=== PATIENT | female | born 1980 | race Two or more races ===

== ENCOUNTER 2017-12-28 15:27 | Emergency (ER) | payer SELFPAY ==
[2017-12-28 16:37] LABS: BILIRUBIN,URINE NEGATIVE (NEG); CLARITY,URINE CLEAR; COLOR,URINE YELLOW; GLUCOSE,URINE NEGATIVE (NEG); NITRITE,URINE NEGATIVE (NEG); PH,URINE 5.5; PROTEIN,URINE NEGATIVE (NEG-TRACE); UROBILINOGEN,URINE 0.2 mg/dL (0.2 mg/dL)
[2017-12-28 16:50] LABS: BACTERIA,URINE FEW /HPF (0-FEW); RBC,URINE 0 /HPF (0-2); SQUAMOUS EPITHELIAL CELL,UR FEW /LPF; WBC,URINE OCC /HPF (0-4)
[2017-12-28] MEDS: ACETAMINOPHEN 500 MG TABLET PO (17:02)
== END 2017-12-28 17:38 | disposition home or self-care (01) ==
LOC: ER 15:27
DX: N39.0 Urinary tract infection, site not specified (principal); M54.5 Low back pain; E11.9 Type 2 diabetes mellitus without complications; I10 Essential (primary) hypertension; Z90.710 Acquired absence of both cervix and uterus
CPT/HCPCS: 81001; 99283

== ENCOUNTER 2018-02-25 10:16 | Emergency (ER) | payer SELFPAY ==
[~2018-02-25] VITALS: Ht 165.1 cm; Wt 95.3 kg
[~2018-02-25 10:16] MED LIST: CEPH500C PO
[2018-02-25 10:18] VITALS: BP 139/87
[2018-02-25] MEDS ORDERED: ORPHENADRINE CITRATE 60 MG/2 ML VIAL. IM ONE (11:00)
[2018-02-25] MEDS ORDERED: KETOROLAC 60 MG/2 ML INJ. IM ONE (11:00)
[2018-02-25] MEDS ORDERED: ORPH100T PO (11:32)
[2018-02-25] MEDS ORDERED: NAPR500T8 PO (11:32)
--- NOTE | 2018-02-25 11:33 | PHYS DOC ---
Past Medical History Past Medical History: Diabetes-Type II, Hypertension, UTI Past Surgical History: Hysterectomy Additional Past Surgical Histo: ectopic, RT ANKLE Alcohol Use: None Drug Use: None Adult General Chief Complaint Chief Complaint: LOWER BACK PAIN OR INJURY HPI HPI Patient is a 38 year old female who presents to the emergency room with complaints of low back pain that radiates into her right leg since awakening this morning. She denies any loss of bowel or bladder control, saddle anesthesia , or any known injury. Currently she rates her pain as a 10 out of 10 on pain scale. States she took 800 mg of ibuprofen prior to arrival with no relief of pain. Patient states that the pain increases when she tries to walk. She denies any dysuria, increased urinary frequency, hematuria, or comments. She denies any numbness, or tingling in her right lower extremity. She describes the pain as sharp and shooting. Review of Systems Review of Systems Constitutional: Denies fever or chills [] GI: Denies abdominal pain, saddle anesthesia, nausea, vomiting, or diarrhea [] : Denies loss of bowel or bladder control, dysuria or hematuria [] Musculoskeletal: Reports right low back pain that radiates into right leg Integument: Denies rash or skin lesions [] Neurologic: Denies headache, focal weakness or sensory changes [] All other systems were reviewed and found to be within normal limits, except as documented in this note. Current Medications Current Medications Current Medications Medications (Trade) Dose Ordered Sig/[facility] Start Time Stop Time Status Last Admin Dose Admin Ketorolac Tromethamine (Toradol Im) 30 mg 1X ONCE 02/25/18 11:00 02/25/18 11:01 DC 02/25/18 11:07 30 MG Orphenadrine Citrate (Norflex) 60 mg 1X ONCE 02/25/18 11:00 02/25/18 11:01 DC 02/25/18 11:06 60 MG Allergies Allergies Allergies Coded Allergies Type Severity Reaction Last Updated Verified No Known Drug Allergies 12/28/17 No Physical Exam Physical Exam Constitutional: Well developed, well nourished, no acute distress, non-toxic appearance. [] HENT: Normocephalic, atraumatic, bilateral external ears normal, nose normal. [] Eyes: Normal Lungs & Thorax: Respirations even and unlabored Skin: Warm, dry, no erythema, no rash. [] Back: No bony tenderness, no CVA tenderness; reports pain with palpation of right lateral low back. Right straight leg lift negative.. [] Extremities: No tenderness, no cyanosis, no clubbing, ROM intact, no edema. [] Neurologic: Alert and oriented X 3, normal motor function, normal sensory function, no focal deficits noted. [] Psychologic: Affect normal, judgement normal, mood normal. [] Current Patient Data Vital Signs Vital Signs Date Time Temp Pulse Resp B/P (MAP) Pulse Ox O2 Delivery O2 Flow Rate FiO2 02/25/18 10:18 98.3 73 16 139/87 (104) 96 Room Air 98.3 EKG EKG [] Radiology/Procedures Radiology/Procedures [] Course & Med Decision Making Course & Med Decision Making Pertinent Labs and Imaging studies reviewed. (See chart for details) Right low back pain with sciatica. Patient was given 30 mg of Toradol IM and orphenadrine 60 mg IM in the department. Recommend application of ice or heat for comfort. Prescriptions written for naproxen and orphenadrine. Activity as tolerated. Follow-up with primary care doctor next week.Patient verbalized an understanding of home care, medications, follow-up, and return to ED instructions and was in agreement with the plan of care. [] Dragon Disclaimer Dragon Disclaimer This electronic medical record was generated, in whole or in part, using a voice recognition dictation system. Departure Departure Impression: Primary Impression: Right-sided low back pain with sciatica Disposition: 01 HOME, SELF-CARE Condition: STABLE Referrals: NO PCP (PCP) Patient Instructions: Back Pain, Adult, [id number], Sciatica, [id number] Additional Instructions: Fill the prescriptions and use them as directed. Recommend application of ice or heat to sore areas as needed for comfort. Activity as tolerated. Follow-up with your primary care doctor next week. Return to the ER if her symptoms get worse. Scripts Orphenadrine Citrate (ORPHENADRINE CITRATE) 100 Mg Tablet.er 1 TAB PO BID for 10 Days, #20 TAB 0 Refills Prov: MIRACLE FLORES NEUROSURGERY SPINE PHYSICIAN 02/25/18 Naproxen (NAPROXEN) 500 Mg Tablet.dr 1 TAB PO BID for 10 Days, #20 TAB 0 Refills Prov: MIRACLE FLORES NEUROSURGERY SPINE PHYSICIAN 02/25/18 Problem Qualifiers Primary Impression: Right-sided low back pain with sciatica Chronicity: acute Sciatica laterality: sciatica of right side Qualified Codes: M54.41 - Lumbago with sciatica, right side MIRACLE FLORES APRN Feb 25, 2018 11:33
== END 2018-02-25 11:45 | disposition home or self-care (01) ==
LOC: ER 10:16
DX: M54.41 Lumbago with sciatica, right side (principal); E11.9 Type 2 diabetes mellitus without complications; I10 Essential (primary) hypertension; Z90.710 Acquired absence of both cervix and uterus; Z87.440 Personal history of urinary (tract) infections
CPT/HCPCS: 96372; 99284; J1885; J2360

== ENCOUNTER 2018-05-02 15:59 | Emergency (ER) | payer SELFPAY ==
[~2018-05-02] VITALS: Ht 162.6 cm; Wt 90.7 kg
[~2018-05-02 15:59] MED LIST changes: +NAPR500T8 PO; +ORPH100T PO
[2018-05-02 16:05] VITALS: BP 151/74
[2018-05-02 16:22] LABS: BILIRUBIN,URINE NEGATIVE (NEG); CLARITY,URINE CLEAR; COLOR,URINE YELLOW; NITRITE,URINE NEGATIVE (NEG); PH,URINE 5.5; PROTEIN,URINE NEGATIVE (NEG-TRACE); UROBILINOGEN,URINE 0.2 mg/dL (0.2 mg/dL)
[2018-05-02 16:33] LABS: BACTERIA,URINE MODERATE /HPF (0-FEW); RBC,URINE 0 /HPF (0-2); SQUAMOUS EPITHELIAL CELL,UR MANY /LPF; WBC,URINE OCC /HPF (0-4)
--- NOTE | 2018-05-02 16:36 | PHYS DOC ---
Past Medical History Past Medical History: Diabetes-Type II, Hypertension, UTI Past Surgical History: Hysterectomy Additional Past Surgical Histo: ectopic, RT ANKLE Alcohol Use: None Drug Use: None Adult General Chief Complaint Chief Complaint: PAIN ON URINATION [facility] HPI Patient is a 38 year old female with a history of hypertension, diabetes type 2 , frequent UTIs, who presents today complaining of dysuria for 1 week. Patient is also complaining of exacerbation of chronic sciatica pain. She states she's had bilateral low back pain rated as mild radiating to bilateral lower extremities for one week. Denies any injury. Denies any loss of bowel bladder function. Review of Systems Review of Systems Constitutional: Denies fever or chills [] Eyes: Denies change in visual acuity, redness, or eye pain [] HENT: Denies nasal congestion or sore throat [] Respiratory: Denies cough or shortness of breath [] Cardiovascular: No additional information not addressed in HPI [] GI: Denies abdominal pain, nausea, vomiting, bloody stools or diarrhea [] : Reports dysuria, denies hematuria [] Musculoskeletal: Reports exacerbation of chronic low back pain. Integument: Denies rash or skin lesions [] Neurologic: Denies headache, focal weakness or sensory changes [] All other systems were reviewed and found to be within normal limits, except as documented in this note. Allergies Allergies Allergies Coded Allergies Type Severity Reaction Last Updated Verified No Known Drug Allergies 12/28/17 No Physical Exam Physical Exam Constitutional: Well developed, well nourished, no acute distress, non-toxic appearance. [] HENT: Normocephalic, atraumatic, bilateral external ears normal, oropharynx moist, no oral exudates, nose normal. [] Eyes: PERRLA, EOMI, conjunctiva normal, no discharge. [] Neck: Normal range of motion, no tenderness, supple, no stridor. [] Cardiovascular:Heart rate regular rhythm, no murmur [] Lungs & Thorax: Bilateral breath sounds clear to auscultation [] Abdomen: Bowel sounds normal, soft, no tenderness, no masses, no pulsatile masses. [] Skin: Warm, dry, no erythema, no rash. [] Back: Tenderness on palpation of bilateral SI joints, no midline lumbar spine tenderness, no CVA tenderness. Positive bilateral straight leg raises. Extremities: No tenderness, no cyanosis, no clubbing, ROM intact, no edema. [] Neurologic: Alert and oriented X 3, normal motor function, normal sensory function, no focal deficits noted. [] Psychologic: Affect normal, judgement normal, mood normal. [] Current Patient Data Vital Signs Vital Signs Date Time Temp Pulse Resp B/P (MAP) Pulse Ox O2 Delivery O2 Flow Rate FiO2 05/02/18 16:05 98.1 81 20 151/74 (99) 99 Room Air 98.1 Lab Values Laboratory Tests Test 05/02/18 16:09 Urine Collection Type Void Urine Color Yellow Urine Clarity Clear Urine pH 5.5 Urine Specific [place] >=1.030 Urine Protein Negative mg/dL (NEG-TRACE) Urine Glucose (UA) Negative mg/dL (NEG) Urine Ketones (Stick) Negative mg/dL (NEG) Urine Blood Negative (NEG) Urine Nitrite Negative (NEG) Urine Bilirubin Negative (NEG) Urine Urobilinogen Dipstick 0.2 mg/dL (0.2 mg/dL) Urine Leukocyte Esterase Negative (NEG) Urine RBC 0 /HPF (0-2) Urine WBC Occ /HPF (0-4) Urine Squamous Epithelial Cells Many /LPF Urine Bacteria Moderate /HPF (0-FEW) Urine Mucus Marked /LPF EKG EKG [] Radiology/Procedures Radiology/Procedures [] Course & Med Decision Making Course & Med Decision Making Pertinent Labs and Imaging studies reviewed. (See chart for details) This is a 38-year-old female patient presenting to the ED today with complaints of dysuria for one week. Also complaining of exacerbation of chronic sciatic pain. U/A noted for many bacteria and squamous cell epithelium, this appears to be a contaminated specimen unfortunately patient is symptomatic. We'll put her on Bactrim while waiting for urine culture, we'll discharge her with Pyridium as well. Discharged with diclofenac and cyclobenzaprine for her sciatic pain. Follow-up with her PCP in 1-2 weeks. Dragon Disclaimer Dragon Disclaimer This electronic medical record was generated, in whole or in part, using a voice recognition dictation system. Departure Departure Impression: Primary Impression: UTI (urinary tract infection) Additional Impression: Chronic low back pain with bilateral sciatica Disposition: 01 HOME, SELF-CARE Condition: STABLE Referrals: NO PCP (PCP) follow up with your doctor next week FOFANA,SELINA N MD follow up for sciatica pain next week Patient Instructions: Sciatica, [id number], Urinary Tract Infection Additional Instructions: You were evaluated in the emergency room for urinary tract infection and sciatic pain. Complete your antibiotics. Take the rest of the prescribed medications as ordered. Follow-up with your doctor as well as the pain clinic doctor provided for chronic sciatic pain. Scripts Phenazopyridine Hcl (PYRIDIUM) 100 Mg Tablet 100 MG PO TID, #9 TAB Prov: LORIE TRUONG APRN 05/02/18 Diclofenac Sodium (DICLOFENAC SODIUM) 50 Mg Tablet.dr 1 TAB PO BID, #30 TAB 0 Refills Prov: LORIE TRUONG APRN 05/02/18 Sulfamethoxazole/Trimethoprim (BACTRIM DS TABLET) 1 Each Tablet 1 TAB PO BID, #6 TAB Prov: LORIE TRUONG APRN 05/02/18 Cyclobenzaprine Hcl (CYCLOBENZAPRINE HCL) 10 Mg Tablet 1 TAB PO TID, #30 TAB Prov: LORIE TRUONG APRN 05/02/18 Problem Qualifiers Primary Impression: UTI (urinary tract infection) Urinary tract infection type: site unspecified Hematuria presence: without hematuria Qualified Codes: N39.0 - Urinary tract infection, site not specified Additional Impression: Chronic low back pain with bilateral sciatica Back pain laterality: bilateral Qualified Codes: M54.42 - Lumbago with sciatica, left side; M54.41 - Lumbago with sciatica, right side; G89.29 - Other chronic pain LORIE TRUONG APRN May 02, 2018 16:36
[2018-05-02] MEDS ORDERED: CYCL10TA2 PO (16:48)
[2018-05-02] MEDS ORDERED: DICL50TA4 PO (16:48)
[2018-05-02] MEDS ORDERED: SULF1TAB24 PO (16:48)
[2018-05-02] MEDS ORDERED: PHEN100T82 PO (16:50)
[2018-05-02] MEDS ORDERED: HYDROcodone/APAP 5/325MG 1 TAB TABLET PO ONE (17:00)
[2018-05-02] MEDS ORDERED: CYCLOBENZAPRINE 10 MG TABLET. PO ONE (17:00)
== END 2018-05-02 16:57 | disposition home or self-care (01) ==
LOC: ER 15:59
DX: N39.0 Urinary tract infection, site not specified (principal); M54.42 Lumbago with sciatica, left side; M54.41 Lumbago with sciatica, right side; G89.29 Other chronic pain; I10 Essential (primary) hypertension; E11.9 Type 2 diabetes mellitus without complications; Z90.710 Acquired absence of both cervix and uterus
CPT/HCPCS: 81001; 99283

== ENCOUNTER 2018-08-08 21:35 | Emergency (ER) | payer BC ==
[~2018-08-08] VITALS: Ht 162.6 cm; Wt 97.5 kg
[~2018-08-08 21:35] MED LIST changes: +CYCL10TA2 PO; +DICL50TA4 PO; +PHEN100T82 PO; +SULF1TAB24 PO
[2018-08-08 21:51] LABS: BILIRUBIN,URINE NEGATIVE (NEG); CLARITY,URINE CLEAR; COLOR,URINE YELLOW; NITRITE,URINE NEGATIVE (NEG); PH,URINE 6.5; PROTEIN,URINE NEGATIVE (NEG-TRACE)
[2018-08-08 21:58] LABS: BACTERIA,URINE MANY /HPF (0-FEW); RBC,URINE OCC /HPF (0-2); SQUAMOUS EPITHELIAL CELL,UR MOD /LPF; WBC,URINE >40 /HPF (0-4)
[2018-08-08] MEDS ORDERED: cefTRIAXone IV Push 1 GM VIAL. IVP ONE (22:45)
[2018-08-08] MEDS ORDERED: CEPH500C PO (22:51)
--- NOTE | 2018-08-08 23:09 | PHYS DOC ---
Past Medical History Past Medical History: Diabetes-Type II, Hypertension, UTI Past Surgical History: Cholecystectomy, Hysterectomy Additional Past Surgical Histo: ectopic, RT ANKLE Alcohol Use: None Drug Use: None Adult General Chief Complaint Chief Complaint: FLANK PAIN HPI HPI Patient is a 38 year old f with cc of dysuria and left flan onset 2 days ago history of prior UTIs no fever did have one episode of vomiting but is taking by mouth's no abdominal pain. Symptoms are mild to moderate k painnonradiating in nature Review of Systems Review of Systems Constitutional: Denies fever or chills [] Eyes: Denies change in visual acuity, redness, or eye pain [] HENT: Denies nasal congestion or sore throat [] Respiratory: Denies cough or shortness of breath [] Musculoskeletal: Integument: Denies rash or skin lesions [] Neurologic: Denies headache, focal weakness or sensory changes [] Endocrine: Denies polyuria or polydipsia [] All other systems were reviewed and found to be within normal limits, except as documented in this note. Current Medications Current Medications Current Medications Medications (Trade) Dose Ordered Sig/[facility] Start Time Stop Time Status Last Admin Dose Admin Ceftriaxone Sodium (Rocephin) 1 gm 1X ONCE 08/08/18 22:45 08/08/18 22:46 DC Allergies Allergies Allergies Coded Allergies Type Severity Reaction Last Updated Verified No Known Drug Allergies 12/28/17 No Physical Exam Physical Exam Constitutional: Well developed, well nourished, no acute distress, non-toxic appearance. [] HENT: Normocephalic, atraumatic, bilateral external ears normal, oropharynx moist, no oral exudates, nose normal. [] Eyes: PERRLA, EOMI, conjunctiva normal, no discharge. [] Neck: Normal range of motion, no tenderness, supple, no stridor. [] Cardiovascular:Heart rate regular rhythm, no murmur [] Lungs & Thorax: Bilateral breath sounds clear to auscultation [] Abdomen: Bowel sounds normal, soft, no tenderness, no masses, no pulsatile masses. [] Skin: Warm, dry, no erythema, no rash. [] Back: cva ttp on the left noted Extremities: No tenderness, no cyanosis, no clubbing, ROM intact, no edema. [] Neurologic: Alert and oriented X 3, normal motor function, normal sensory function, no focal deficits noted. [] Psychologic: Affect normal, judgement normal, mood normal. [] Current Patient Data Vital Signs Vital Signs Date Time Temp Pulse Resp B/P (MAP) Pulse Ox O2 Delivery O2 Flow Rate FiO2 08/08/18 21:50 97.7 86 14 165/89 (114) 96 Room Air 97.7 Lab Values Laboratory Tests Test 08/08/18 21:42 08/08/18 21:45 08/08/18 22:40 Urine Collection Type Unknown Urine Color Yellow Urine Clarity Clear Urine pH 6.5 Urine Specific [place] 1.015 Urine Protein Negative mg/dL (NEG-TRACE) Urine Glucose (UA) Negative mg/dL (NEG) Urine Ketones (Stick) Negative mg/dL (NEG) Urine Blood Negative (NEG) Urine Nitrite Negative (NEG) Urine Bilirubin Negative (NEG) Urine Urobilinogen Dipstick 1.0 mg/dL (0.2 mg/dL) Urine Leukocyte Esterase Moderate (NEG) Urine RBC Occ /HPF (0-2) Urine WBC >40 /HPF (0-4) Urine Squamous Epithelial Cells Mod /LPF Urine Bacteria Many /HPF (0-FEW) Urine Mucus Mod /LPF POC Urine HCG, Qualitative Hcg negative (Negative) Glucose (Fingerstick) 171 mg/dL (70-99) H EKG EKG [] Radiology/Procedures Radiology/Procedures [] Course & Med Decision Making Course & Med Decision Making Pertinent Labs and Imaging studies reviewed. (See chart for details) [] UTI well-appearing perception for Keflex dose of cephalexin was given return precautions were discussed patient appears appropriate for outpatient management. Dragon Disclaimer Dragon Disclaimer This electronic medical record was generated, in whole or in part, using a voice recognition dictation system. Departure Departure Impression: Primary Impression: UTI (urinary tract infection) Disposition: HOME, SELF-CARE Condition: STABLE Patient Instructions: Urinary Tract Infection, Child Scripts Cephalexin (CEPHALEXIN) 500 Mg Capsule 1 CAP PO QID, #40 CAP Prov: AYO TRIVEDI MD 08/08/18 AYO TRIVEDI MD Aug 08, 2018 23:09
[2018-08-08 23:13] VITALS: BP 114/65
[2018-08-08] MEDS ORDERED: ONDANSETRON PF 4 MG/2 ML VIAL. IV ONE (23:15)
== END 2018-08-08 23:21 | disposition home or self-care (01) ==
LOC: ER 21:35
DX: N39.0 Urinary tract infection, site not specified (principal); R11.10 Vomiting, unspecified; M54.9 Dorsalgia, unspecified; E11.9 Type 2 diabetes mellitus without complications; I10 Essential (primary) hypertension; Z90.49 Acquired absence of other specified parts of digestive tract; Z90.710 Acquired absence of both cervix and uterus
CPT/HCPCS: 81001; 81025; 82962; 87086; 87186; 96374; 96375; 99283; J0696; J2405; 99284

== ENCOUNTER 2018-11-08 14:03 | Emergency (ER) | payer BC ==
[~2018-11-08] VITALS: Ht 162.6 cm; Wt 102.2 kg
[2018-11-08 14:46] VITALS: BP 162/95
[2018-11-08] MEDS ORDERED: IV NORMAL SALINE 1000ML BAG 1,000 ML IV ONE (15:00)
[2018-11-08 15:04] LABS: BASO # 0.1 x10^3/uL (0.0-0.2); BASO % 1 % (0-3); EOS # 0.2 x10^3/uL (0.0-0.7); EOS % 1 % (0-3); HEMATOCRIT 43.1 % (36.0-47.0); HEMOGLOBIN 14.2 g/dL (12.0-15.5); LYMPH % 37 % (24-48); MEAN CORPUSCULAR HEMOGLOBIN 28 pg (25-35); MEAN CORPUSCULAR HGB CONC 33 g/dL (31-37); MEAN CORPUSCULAR VOLUME 83 fL (79-100); MONO # 0.6 x10^3/uL (0.0-1.1); MONO % 6 % (0-9); NEUT % 56 % (31-73); PLATELET COUNT 436 x10^3/uL (140-400); RED BLOOD COUNT 5.17 x10^6/uL (3.50-5.40); WHITE BLOOD COUNT 10.9 x10^3/uL (4.0-11.0)
[2018-11-08 15:13] LABS: PROTHROMBIN TIME PATIENT 12.4 SEC (11.7-14.0)
[2018-11-08 15:19] LABS: CALCIUM 9.6 mg/dL (8.5-10.1); CREATININE 0.8 mg/dL (0.6-1.0); GFR 79.4; POTASSIUM 3.7 mmol/L (3.5-5.1)
--- NOTE | 2018-11-08 15:20 | RAD ---
CT HEAD WO CONTRAST Indication: Left face and right arm numbness since this morning. Exposure: One or more of the following individualized dose reduction techniques were utilized for this examination: 1. Automated exposure control 2. Adjustment of the mA and/or kV according to patient size 3. Use of iterative reconstruction technique. Technique: Standard imaging without intravenous contrast. No prior study for comparison. No evidence of acute intracranial hemorrhage, mass effect, midline shift or abnormal extra-axial fluid collection. Moreno-white matter distinction is preserved. Ventricles and sulci appear symmetric. The orbits appear symmetric. No notable scalp swelling. The partially visualized sinuses are clear no acute skull abnormality. IMPRESSION: No evidence of acute intracranial hemorrhage. If there is concern for acute ischemia, MR could further evaluate. Electronically signed by: Chaparro Morataya MD (11/08/2018 3:17 PM) [id number]
[2018-11-08 15:23] LABS: ALBUMIN 3.8 g/dL (3.4-5.0); ALBUMIN/GLOBULIN RATIO 0.9 (1.0-1.7); MAGNESIUM 2.1 mg/dL (1.8-2.4); TOTAL BILIRUBIN 0.3 mg/dL (0.2-1.0); TOTAL PROTEIN 7.9 g/dL (6.4-8.2)
[2018-11-08 15:41] LABS: CREATINE KINASE 84 U/L (26-192)
--- NOTE | 2018-11-08 15:42 | EKG ---
[facility] [address] [place] [address] Test Date: 2018-11-08 Test Time: 14:45:42 Pat Name: HASEEB LIN Department: Room: Gender: F Insurance Writer: : 1980 Requested By: LORIE TRUONG Order Number: [id number] Reading MD: Measurements Intervals [place] Rate: 78 P: 42 OR: 170 QRS: 58 QRSD: 82 T: 56 QT: 364 QTc: 418 Interpretive Statements SINUS RHYTHM QRS(T) CONTOUR ABNORMALITY CONSIDER ANTEROSEPTAL MYOCARDIAL DAMAGE CONSIDER INFERIOR MYOCARDIAL DAMAGE POSSIBLY ABNORMAL ECG RI6.01 No previous ECG available for comparison
--- NOTE | 2018-11-08 15:47 | RAD ---
Examination: Frontal view of the chest, 2 views of the cervical spine and 2 views of the right shoulder HISTORY: History of right-sided weakness COMPARISON: None available. FINDINGS: The cardiomediastinal silhouette grossly appears unremarkable. Minimal prominent appearing bilateral interstitial lung markings probably chronic interstitial changes. No evidence of pleural effusion or pneumothorax The cervical vertebral body heights are maintained. No evidence of listhesis. The facets are well aligned. The spinolaminar line is maintained. No evidence of prevertebral soft tissue swelling identified. Minimal intervertebral disc height loss likely minimal degenerative changes identified at C5-C6 vertebral level. The right humerus head is within the glenoid. The acromioclavicular joint grossly appears unremarkable. Probable old healed right clavicle fracture. IMPRESSION: 1. No acute cardiopulmonary findings. 2. Mild degenerative changes cervical spine particularly at C5-C6 vertebral level Electronically signed by: Cameron Delgadillo MD (11/08/2018 3:44 PM) [id number]
[2018-11-08] MEDS ORDERED: CYCLOBENZAPRINE 10 MG TABLET. PO ONE (16:00)
[2018-11-08] MEDS ORDERED: KETOROLAC 30 MG/ML VIAL. IV ONE (16:00)
[2018-11-08] MEDS ORDERED: methylPREDNISolone SOD SUCC PF 125 MG/2 ML VIAL. IV ONE (16:00)
[2018-11-08 16:25] LABS: BILIRUBIN,URINE NEGATIVE (NEG); CLARITY,URINE CLEAR; COLOR,URINE YELLOW; NITRITE,URINE NEGATIVE (NEG); PH,URINE 5.5; PROTEIN,URINE NEGATIVE (NEG-TRACE); UROBILINOGEN,URINE 0.2 mg/dL (0.2 mg/dL)
[2018-11-08 16:30] LABS: BARBITURATES NEG (NEG); BENZODIAZEPINES NEG (NEG); CANNABINOIDS NEG (NEG); COCAINE NEG (NEG); METHADONE NEG (NEG); OPIATES NEG (NEG); PHENCYCLIDINE NEG (NEG)
[2018-11-08 16:32] LABS: AMPHETAMINE/METHAMPHETAMINE NEG (NEG)
[2018-11-08 16:34] LABS: BACTERIA,URINE MANY /HPF (0-FEW); RBC,URINE 0 /HPF (0-2); SQUAMOUS EPITHELIAL CELL,UR MANY /LPF; WBC,URINE 0 /HPF (0-4)
--- NOTE | 2018-11-08 16:50 | PHYS DOC ---
Past Medical History Past Medical History: Diabetes-Type II, Hypertension, UTI Past Surgical History: Cholecystectomy, Hysterectomy Additional Past Surgical Histo: ectopic, RT ANKLE Alcohol Use: None Drug Use: None Adult General Chief Complaint Chief Complaint: NEURO SYMPTOMS/DEFICITS [facility] HPI Patient is a 38 year old female, history hypertension, diabetes type 2 who presents to the ED today with multiple complaints. Patient states she has 7 out of 10 pain around her right scapular with intermittent episodes of numbness and tingling to her fingers, symptoms began this morning when she got up she states she believes she slept on her right arm wrong. Patient denies any known injury. She states her symptoms are better when she puts her right upper extremity above her head. She also states this morning she had an episode of numbness on her left cheek that subsided in less than a couple minutes. Patient denies any chest pain or shortness of breath. She states she's had intermittent episodes of mild headache on and off throughout the day. She states she's had similar headaches before. Denies anything unusual about her headache today. She is also requesting a note for work for 2-3 days. She states certain movements exacerbates her pain to the RUE. Patient denies any nausea vomiting. She is also requesting a note for work. Review of Systems Review of Systems Constitutional: Denies fever or chills [] Eyes: Denies change in visual acuity, redness, or eye pain [] HENT: Denies nasal congestion or sore throat [] Respiratory: Denies cough or shortness of breath [] Cardiovascular: No additional information not addressed in HPI [] GI: Denies abdominal pain, nausea, vomiting, bloody stools or diarrhea [] : Denies dysuria or hematuria [] Musculoskeletal: Reports right shoulder pain Integument: Denies rash or skin lesions [] Neurologic: Reports headache, denies focal weakness or sensory changes [] All other systems were reviewed and found to be within normal limits, except as documented in this note. Current Medications Current Medications Current Medications Medications (Trade) Dose Ordered Sig/Augusto Start Time Stop Time Status Last Admin Dose Admin Cyclobenzaprine HCl (Flexeril) 10 mg 1X ONCE 11/08/18 16:00 11/08/18 16:01 DC 11/08/18 16:02 10 MG Ketorolac Tromethamine (Toradol 30mg Vial) 30 mg 1X ONCE 11/08/18 16:00 11/08/18 16:01 DC 11/08/18 16:02 30 MG Methylprednisolone Sodium Succinate (SOLU-Medrol 125MG VIAL) 125 mg 1X ONCE 11/08/18 16:00 11/08/18 16:01 DC 11/08/18 16:02 125 MG Sodium Chloride 1,000 ml @ 1,000 mls/hr 1X ONCE 11/08/18 15:00 11/08/18 15:59 DC 11/08/18 15:25 1,000 MLS/HR Allergies Allergies Allergies Coded Allergies Type Severity Reaction Last Updated Verified No Known Drug Allergies 12/28/17 No Physical Exam Physical Exam Constitutional: Well developed, well nourished, no acute distress, non-toxic appearance. [] HENT: Normocephalic, atraumatic, bilateral external ears normal, oropharynx moist, no oral exudates, nose normal. [] Eyes: PERRLA, EOMI, conjunctiva normal, no discharge. [] Neck: Normal range of motion, no tenderness, supple, no stridor. [] Cardiovascular:Heart rate regular rhythm, no murmur [] Lungs & Thorax: Bilateral breath sounds clear to auscultation [] Abdomen: Bowel sounds normal, soft, no tenderness, no masses, no pulsatile masses. [] Skin: Warm, dry, no erythema, no rash. [] Back: No tenderness, no CVA tenderness. [] Extremities: No tenderness, no cyanosis, no clubbing, ROM intact, no edema. Right upper extremity pain seemed to be relieved when patient's arm is about the head. Neurologic: Alert and oriented X 3, normal motor function, normal sensory function, no focal deficits noted. Cranial nerves II through XII intact Psychologic: Affect normal, judgement normal, mood normal. [] Current Patient Data Vital Signs Vital Signs Date Time Temp Pulse Resp B/P (MAP) Pulse Ox O2 Delivery O2 Flow Rate FiO2 11/08/18 14:46 87 18 98 11/08/18 14:15 98.8 128/80 (96) Room Air 98.8 Lab Values Laboratory Tests Test 11/08/18 14:40 11/08/18 16:15 White Blood Count 10.9 x10^3/uL (4.0-11.0) Red Blood Count 5.17 x10^6/uL (3.50-5.40) Hemoglobin 14.2 g/dL (12.0-15.5) Hematocrit 43.1 % (36.0-47.0) Mean Corpuscular Volume 83 fL (79-100) Mean Corpuscular Hemoglobin 28 pg (25-35) Mean Corpuscular Hemoglobin Concent 33 g/dL (31-37) Red Cell Distribution Width 13.0 % (11.5-14.5) Platelet Count 436 x10^3/uL (140-400) H Neutrophils (%) (Auto) 56 % (31-73) Lymphocytes (%) (Auto) 37 % (24-48) Monocytes (%) (Auto) 6 % (0-9) Eosinophils (%) (Auto) 1 % (0-3) Basophils (%) (Auto) 1 % (0-3) Neutrophils # (Auto) 6.0 x10^3uL (1.8-7.7) Lymphocytes # (Auto) 4.0 x10^3/uL (1.0-4.8) Monocytes # (Auto) 0.6 x10^3/uL (0.0-1.1) Eosinophils # (Auto) 0.2 x10^3/uL (0.0-0.7) Basophils # (Auto) 0.1 x10^3/uL (0.0-0.2) Prothrombin Time 12.4 SEC (11.7-14.0) Prothrombin Time INR 1.0 (0.8-1.1) PTT 28 SEC (24-38) Sodium Level 142 mmol/L (136-145) Potassium Level 3.7 mmol/L (3.5-5.1) Chloride Level 106 mmol/L (98-107) Carbon Dioxide Level 24 mmol/L (21-32) Anion Gap 12 (6-14) Blood Urea Nitrogen 12 mg/dL (7-20) Creatinine 0.8 mg/dL (0.6-1.0) Estimated GFR (Cockcroft-Gault) 79.4 BUN/Creatinine Ratio 15 (6-20) Glucose Level 120 mg/dL (70-99) H Calcium Level 9.6 mg/dL (8.5-10.1) Magnesium Level 2.1 mg/dL (1.8-2.4) Total Bilirubin 0.3 mg/dL (0.2-1.0) Aspartate Amino Transferase (AST) 30 U/L (15-37) Alanine Aminotransferase (ALT) 44 U/L (14-59) Alkaline Phosphatase 91 U/L (46-116) Creatine Kinase 84 U/L (26-192) Creatine Kinase MB (Mass) < 0.5 ng/mL (0.0-3.6) Creatine Kinase MB Relative Index % (0-4) Troponin I Quantitative < 0.017 ng/mL (0.000-0.055) GF-Syf-O-Type Natriuretic Peptide 68 pg/mL (0-124) Total Protein 7.9 g/dL (6.4-8.2) Albumin 3.8 g/dL (3.4-5.0) Albumin/Globulin Ratio 0.9 (1.0-1.7) L Thyroid Stimulating Hormone (TSH) 2.226 uIU/mL (0.358-3.74) Urine Collection Type Void Urine Color Yellow Urine Clarity Clear Urine pH 5.5 Urine Specific [place] 1.025 Urine Protein Negative mg/dL (NEG-TRACE) Urine Glucose (UA) Negative mg/dL (NEG) Urine Ketones (Stick) Negative mg/dL (NEG) Urine Blood Negative (NEG) Urine Nitrite Negative (NEG) Urine Bilirubin Negative (NEG) Urine Urobilinogen Dipstick 0.2 mg/dL (0.2 mg/dL) Urine Leukocyte Esterase Negative (NEG) Urine RBC 0 /HPF (0-2) Urine WBC 0 /HPF (0-4) Urine Squamous Epithelial Cells Many /LPF Urine Bacteria Many /HPF (0-FEW) Urine Mucus Marked /LPF Urine Opiates Screen Neg (NEG) Urine Methadone Screen Neg (NEG) Urine Barbiturates Neg (NEG) Urine Phencyclidine Screen Neg (NEG) Urine Amphetamine/Methamphetamine Neg (NEG) Urine Benzodiazepines Screen Neg (NEG) Urine Cocaine Screen Neg (NEG) Urine Cannabinoids Screen Neg (NEG) Urine Ethyl Alcohol Neg (NEG) Laboratory Tests 11/08/18 14:40 Laboratory Tests 11/08/18 14:40 EKG EKG 14:[address] Woods sinus rhythm heart rate 78 no STEMI[] Radiology/Procedures Radiology/Procedures []PROCEDURE: CT HEAD WO CONTRAST CT HEAD WO CONTRAST Indication: Left face and right arm numbness since this morning. Exposure: One or more of the following individualized dose reduction techniques were utilized for this examination: 1. Automated exposure control 2. Adjustment of the mA and/or kV according to patient size 3. Use of iterative reconstruction technique. Technique: Standard imaging without intravenous contrast. No prior study for comparison. No evidence of acute intracranial hemorrhage, mass effect, midline shift or abnormal extra-axial fluid collection. Moreno-white matter distinction is preserved. Ventricles and sulci appear symmetric. The orbits appear symmetric. No notable scalp swelling. The partially visualized sinuses are clear no acute skull abnormality. IMPRESSION: No evidence of acute intracranial hemorrhage. If there is concern for acute ischemia, MR could further evaluate. Electronically signed by: Chaparro Morataya MD (11/08/2018 3:17 PM) [facility] DICTATED and SIGNED BY: CHAPARRO MORATAYA MD DATE: 11/08/18 1517 PROCEDURE: CERVICAL SPINE 2-3V Examination: Frontal view of the chest, 2 views of the cervical spine and 2 views of the right shoulder HISTORY: History of right-sided weakness COMPARISON: None available. FINDINGS: The cardiomediastinal silhouette grossly appears unremarkable. Minimal prominent appearing bilateral interstitial lung markings probably chronic interstitial changes. No evidence of pleural effusion or pneumothorax The cervical vertebral body heights are maintained. No evidence of listhesis. The facets are well aligned. The spinolaminar line is maintained. No evidence of prevertebral soft tissue swelling identified. Minimal intervertebral disc height loss likely minimal degenerative changes identified at C5-C6 vertebral level. The right humerus head is within the glenoid. The acromioclavicular joint grossly appears unremarkable. Probable old healed right clavicle fracture. IMPRESSION: 1. No acute cardiopulmonary findings. 2. Mild degenerative changes cervical spine particularly at C5-C6 vertebral level Electronically signed by: Cameron Delgadillo MD (11/08/2018 3:44 PM) [facility] DICTATED and SIGNED BY: CAMERON DELGADILLO MD DATE: 11/08/18 5949 PROCEDURE: PORTABLE CHEST 1V Examination: Frontal view of the chest, 2 views of the cervical spine and 2 views of the right shoulder HISTORY: History of right-sided weakness COMPARISON: None available. FINDINGS: The cardiomediastinal silhouette grossly appears unremarkable. Minimal prominent appearing bilateral interstitial lung markings probably chronic interstitial changes. No evidence of pleural effusion or pneumothorax The cervical vertebral body heights are maintained. No evidence of listhesis. The facets are well aligned. The spinolaminar line is maintained. No evidence of prevertebral soft tissue swelling identified. Minimal intervertebral disc height loss likely minimal degenerative changes identified at C5-C6 vertebral level. The right humerus head is within the glenoid. The acromioclavicular joint grossly appears unremarkable. Probable old healed right clavicle fracture. IMPRESSION: 1. No acute cardiopulmonary findings. 2. Mild degenerative changes cervical spine particularly at C5-C6 vertebral level Electronically signed by: Cameron Delgadillo MD (11/08/2018 3:44 PM) [place] [id number] DICTATED and SIGNED BY: CAMERON DELGADILLO MD DATE: 11/08/181543 PROCEDURE: SHOULDER 2+V RIGHT Examination: Frontal view of the chest, 2 views of the cervical spine and 2 views of the right shoulder HISTORY: History of right-sided weakness COMPARISON: None available. FINDINGS: The cardiomediastinal silhouette grossly appears unremarkable. Minimal prominent appearing bilateral interstitial lung markings probably chronic interstitial changes. No evidence of pleural effusion or pneumothorax The cervical vertebral body heights are maintained. No evidence of listhesis. The facets are well aligned. The spinolaminar line is maintained. No evidence of prevertebral soft tissue swelling identified. Minimal intervertebral disc height loss likely minimal degenerative changes identified at C5-C6 vertebral level. The right humerus head is within the glenoid. The acromioclavicular joint grossly appears unremarkable. Probable old healed right clavicle fracture. IMPRESSION: 1. No acute cardiopulmonary findings. 2. Mild degenerative changes cervical spine particularly at C5-C6 vertebral level Electronically signed by: Cameron Delgadillo MD (11/08/2018 3:44 PM) [place] [id number] DICTATED and SIGNED BY: CAMERON DELGADILLO MD DATE: 11/08/18 5704 Course & Med Decision Making Course & Med Decision Making Pertinent Labs and Imaging studies reviewed. (See chart for details) This is a 38-year-old female patient presenting to the ED today with multiple co mplaints. Patient is complaining of pain to the right scapular region with some numbness and tingling to the right upper extremity, pain relieved and patient raises the right upper extremity above the head. EKG was negative for any acute findings, troponin is normal, CBC, CMP, rest of her workup is negative. CT of the head is negative for any acute findings, cervical spine x-rays noted for DJD, right shoulder x-ray and chest x-ray negative. Patient was given Toradol, Solu-Medrol, and cyclobenzaprine. Patient is in no distress, offered admission to the hospital, patient states she is not able to stay, she would like to go home with a note for work for 3 days. She states she'll follow-up with her PCP and neurologist in the course of this week Her stroke scale is 0. Provided return precautions and discharged in stable condition Dragon Disclaimer Dragon Disclaimer This electronic medical record was generated, in whole or in part, using a voice recognition dictation system. Departure Departure Impression: Primary Impression: Radiculopathy affecting upper extremity Additional Impression: Headache Disposition: HOME, SELF-CARE Condition: STABLE Referrals: NO PCP (PCP) Follow up with your doctor in the next 1-3 days ANIRUDH VALERO MD follow up in 1-3 days Patient Instructions: Cervical Radiculopathy, [id number] Additional Instructions: You were evaluated in the emergency room, we recommend you follow-up with your primary care doctor as soon as you can. Take the prescribed medications as ordered. Please come back to the ED at any point symptoms worsen. Scripts Diclofenac Potassium (DICLOFENAC POTASSIUM) 50 Mg Tablet 1 TAB PO BID, #20 TAB 0 Refills Prov: DIONNELORIE VAHE 11/08/18 Cyclobenzaprine Hcl (CYCLOBENZAPRINE HCL) 10 Mg Tablet 1 TAB PO TID, #30 TAB Prov: DIONNELORIE APRN 11/08/18 NIHSS Stroke Scale NIH Stroke Scale: NIH Stroke Scale Response (Comments) Value Level of Consciousness: 0 Alert/Responsive 0 LOC Questions: 0 Answers both correctly 0 LOC Commands: 0 Performs both tasks 0 Best Gaze: 0 Normal 0 Visual: 0 No visual loss 0 Facial Palsy: 0 Normal, symmetrical 0 Motor - Left Arm 0 No drift 0 Motor - Right Arm 0 No drift 0 Motor - Left Leg 0 No drift 0 Motor: Right Leg 0 No drift 0 Limb Ataxia: 0 Absent 0 Sensory: 0 No loss 0 Best Language: 0 Normal 0 Dysathria: 0 Normal 0 Extinction and Inattention: 0 Normal 0 Total 0 Problem Qualifiers Additional Impression: Headache Headache type: unspecified Headache chronicity pattern: unspecified pattern Intractability: not intractable Qualified Codes: R51 - Headache LORIE TRUONG APRN November 08, 2018 16:50
[2018-11-08] MEDS ORDERED: CYCL10TA2 PO (16:59)
[2018-11-08] MEDS ORDERED: DICL50TA2 PO (16:59)
== END 2018-11-08 17:29 | disposition home or self-care (01) ==
LOC: ER 14:03
DX: M54.12 Radiculopathy, cervical region (principal); R51 Headache; M25.511 Pain in right shoulder; I10 Essential (primary) hypertension; E11.9 Type 2 diabetes mellitus without complications; Z90.49 Acquired absence of other specified parts of digestive tract; Z90.710 Acquired absence of both cervix and uterus
CPT/HCPCS: 36415; 70450; 71045; 72040; 73030; 80053; 80307; 81001; 82553; 83735; 83880; 84443; 84484; 85025; 85610; 85730; 93005; 96374; 96375; 99285; J1885; J2930; J7030

== ENCOUNTER 2019-12-22 08:23 | Emergency (ER) | payer BC ==
[~2019-12-22] VITALS: Ht 162.6 cm; Wt 95.0 kg
[~2019-12-22 08:23] MED LIST changes: +DICL50TA2 PO
[2019-12-22 09:26] VITALS: BP 164/100
[2019-12-22] MEDS ORDERED: PRED20TA PO (09:31)
[2019-12-22] MEDS ORDERED: CEPH-263 PO (09:32)
--- NOTE | 2019-12-22 09:32 | PHYS DOC ---
Past Medical History Past Medical History: Diabetes-Type II, Hypertension, UTI Past Surgical History: Cholecystectomy, Hysterectomy Additional Past Surgical Histo: ectopic, RT ANKLE Smoking Status: Current Every Day Smoker Alcohol Use: None Drug Use: None General Adult EDM: Chief Complaint: EYE PROBLEMS HPI: HPI: 39-year-old female presenting the emergency department today with left-sided eye pain and swelling. She was bitten by a wasp just above her eyebrow last night and since then has had some swelling and pain. Her pain is a throbbing nonradiating moderate pain that comes and goes. She has had worsening swelling of the eyelid over the past day and throughout the night. She denies any visual changes and denies any pain with movement of her eyes. She denies any redness of the conjunctive. Review of systems negative for chest pain shortness of breath abdominal pain vomiting fevers chills. All other review of systems negative. ED course: 39-year-old female presented emergency department today with left- sided eye pain and swelling. On examination she has some soft tissue swelling of the left eyebrow including the eyelid. No erythema of the conjunctiva. Norm al range of motion of the extraocular movements. No pain with extraocular movements. The remainder the exam is unremarkable. We will give the patient's Benadryl prednisone and Keflex to have her follow-up with her doctor in 1 to 2 days. Heart Score: Risk Factors: Risk Factors: DM, Current or recent (<one month) smoker, HTN, HLP, family history of CAD, obesity. Risk Scores: Score 0 - 3: 2.5% MACE over next 6 weeks - Discharge Home Score 4 - 6: 20.3% MACE over next 6 weeks - Admit for Clinical Observation Score 7 - 10: 72.7% MACE over next 6 weeks - Early Invasive Strategies Allergies: Allergies: Allergies Coded Allergies Type Severity Reaction Last Updated Verified No Known Drug Allergies 12/28/17 No Physical Exam: PE: Constitutional: Well developed, well nourished, no acute distress, non-toxic appearance. [] HENT: Normocephalic, atraumatic, bilateral external ears normal, oropharynx moist, no oral exudates, nose normal. [] Eyes: PERRLA, EOMI, as above. Conjunctiva within normal limits. No erythema. Swelling of the eyelid. Minimally warm to touch. Neck: Normal range of motion, no tenderness, supple, no stridor. [] Cardiovascular:Heart rate regular rhythm, no murmur [] Lungs & Thorax: Bilateral breath sounds clear to auscultation [] Abdomen: Bowel sounds normal, soft, no tenderness, no masses, no pulsatile masses. [] Skin: Warm, dry, no erythema, no rash. [] Back: No tenderness, no CVA tenderness. [] Extremities: No tenderness, no cyanosis, no clubbing, ROM intact, no edema. [] Neurologic: Alert and oriented X 3, normal motor function, normal sensory function, no focal deficits noted. [] Psychologic: Affect normal, judgement normal, mood normal. [] EKG: EKG: [] Radiology/Procedures: Radiology/Procedures: [] Course & Med Decision Making: Course & Med Decision Making Pertinent Labs and Imaging studies reviewed. (See chart for details) [] Dragon Disclaimer: Dragon Disclaimer: This electronic medical record was generated, in whole or in part, using a voice recognition dictation system. Departure Departure Impression: Primary Impression: Allergic reaction Additional Impression: Cellulitis Disposition: 01 HOME, SELF-CARE Condition: STABLE Referrals: NO PCP (PCP) Patient Instructions: Insect Sting Allergy Scripts Cephalexin (KEFLEX) 250 Mg Capsule 1 CAP PO QID, #28 CAP Prov: RONALDO FITCH MD 12/22/19 Prednisone (PREDNISONE) 20 Mg Tablet 2 TAB PO DAILY for 5 Days, #10 TAB Prov: RONALDO FITCH MD 12/22/19 Justicifation of Admission Dx: Justifications for Admission: Justification of Admission Dx: No RONALDO FITCH MD Dec 22, 2019 09:32
== END 2019-12-22 10:01 | disposition home or self-care (01) ==
LOC: ER 08:23
DX: T78.40XA Allergy, unspecified, initial encounter (principal); H00.036 Abscess of eyelid left eye, unspecified eyelid; E11.9 Type 2 diabetes mellitus without complications; I10 Essential (primary) hypertension; F17.200 Nicotine dependence, unspecified, uncomplicated
CPT/HCPCS: 99283